=== PATIENT | female | born 2000 | race African-American/Black ===

== ENCOUNTER 2020-08-23 11:08 | Emergency (ER) | payer BC ==
[2020-08-23] MEDS ORDERED: Ondansetron ODT 4 MG TAB ONE (12:14)
== END 2020-08-23 12:25 | disposition home or self-care (01) ==
LOC: CSHERS 11:08
DX: R11.2 Nausea with vomiting, unspecified (principal); R19.7 Diarrhea, unspecified; F17.210 Nicotine dependence, cigarettes, uncomplicated
CPT/HCPCS: 99283; Q0162